=== PATIENT | female | born 1960 | race African-American/Black ===

== ENCOUNTER 2021-11-28 18:26 | Emergency (ER) | payer OTHER, SELFPAY ==
--- NOTE | ~2021-11-28 | XR_ITS ---
EXAMINATION: XR KNEE, LEFT CLINICAL INFORMATION: Swelling with knee pain. COMPARISON: None TECHNIQUE: AP, lateral, and both oblique views of the left knee. FINDINGS: Bones are osteopenic. Tricompartmental osteoarthritis is most severe in the medial compartment with nonuniform joint space narrowing, articular cortical irregularity, and marginal osteophytes. There is more moderate osteoarthritis in patellofemoral compartment and mild osteoarthritis in the lateral compartment. Small joint effusion. No fractures are identified. Bones are osteopenic. Soft tissues are swollen. XR/XR knee LT 3V IMPRESSION: Tricompartmental osteoarthritis the left knee, most severe in the medial compartment. Small knee joint effusion.
--- NOTE | ~2021-11-28 | US_ITS ---
EXAMINATION: US VENOUS ULTRASOUND WITH DOPPLER LOWER EXTREMITY, LEFT CLINICAL INFORMATION: Left leg swelling. Question popliteal cyst or DVT COMPARISON: None TECHNIQUE: Ultrasound of the deep veins is performed from the hip to the calf with compression sonography and color and pulse Doppler assessment. Spectral analysis with color-flow imaging is performed. FINDINGS: There is normal venous compression and respiratory variation and augmented flow. The visualized common femoral vein, superficial femoral vein, profunda femoral vein, popliteal vein, and the trifurcation region shows no evidence of deep venous thrombosis. Small Cai's/popliteal cyst measures 4.3 x 0.8 x 1.1 cm in size. If the patient's symptoms persist, followup ultrasound in 5 days 7 days might be of value to exclude proximal propagation from a non-visualized calf vein. US/US venous duplex LE LT IMPRESSION: 1. No DVT demonstrated in the left lower extremity. 2. Small Cai's cyst/popliteal cyst.
[2021-11-28 18:39] VITALS: BP 188/98; PULSE 64; RESP 18; TEMP 36.5; O2SAT 99; BMI 33.9
--- NOTE | 2021-11-28 20:11 | ED.EXTPRO ---
HPI - Extremity Problem General Chief complaint: Extremity Problem Stated complaint: left lower leg swelling/ pain Time Seen by Provider: 11/28/21 20:10 Source: patient Mode of arrival: ambulatory Limitations: no limitations History of Present Illness HPI Narrative: Patient's history of severe osteoarthritis noticed for last few days swelling and pain in the left knee and the leg no shortness of breath no history of blood clots in the past no history of fall or injury Related Data Previous Rx's Medication Instructions Recorded diclofenac sodium 50 mg 50 mg PO BID #30 tabs 11/28/21 tablet,delayed release tramadol 50 mg tablet 50 mg PO Q6H PRN pain #20 tabs 11/28/21 Allergies Allergy/AdvReac Type Severity Reaction Status Date / Time aspirin Allergy Unknown Verified 11/28/21 18:38 Review of Systems Review of Systems: Yes all other systems are reviewed and are negative [facility] Social History Social History Advance Directives: No Advance Directives Information Provided: No Physical Exam Vital Signs: Vital Signs: Last Vital Signs Temp 97.7 F 11/28/21 18:39 Pulse 64 11/28/21 18:39 Resp 18 11/28/21 18:39 BP 188/98 H 11/28/21 18:39 Pulse Ox 99 11/28/21 18:39 O2 Del Method 11/28/21 18:39 BMI result Body Mass Index 33.9 Appearance: Alert. Oriented X3. No acute distress. Eyes: No pallor/ icterus ENT: Pharynx normal. Oral Mucosa moist Neck: Normal inspection. Neck supple. CVS: Normal heart rate and rhythm. Pulses normal. Respiratory: No respiratory distress. Equal air entry bilateral, no wheezing/rales/rhonchi Abdomen: Soft and nontender. Bowel sounds are present, no mass palpable, no CVA tenderness Skin: Skin warm and dry. Normal skin color. Normal skin turgor. Extremities: Trace pedal edema left leg, No calf tenderness, left knee effusion + fullness in the popliteal area Aneta sign negative Neuro: Oriented X 3. No motor deficit. MDM - Extremity (Nontraumatic) MDM Narrative Medical decision making narrative: Patient with severe arthritis of left knee ultrasound negative for Doppler shows popliteal cyst as a cause for the left leg swelling. Patient advised to follow with orthopedic Discharge Plan Discharge Clinical Impression: Osteoarthritis of left knee Patient Disposition: Home, Self-Care Instructions: Osteoarthritis (ED) Additional Instructions: you have swelling of the left leg secondary to severe osteoarthritis of left knee Jesse wrap for support Follow-up with orthopedic for further evaluation including knee replacement as needed Pain medication as prescribed Rest your left knee Prescriptions: New diclofenac sodium 50 mg tablet,delayed release (DR/EC) 50 mg PO BID Qty: 30 0RF tramadol 50 mg tablet 50 mg PO Q6H PRN (Reason: pain) Qty: 20 0RF Referrals: Junior Quach MD [Physician] - 2 weeks Stand Alone Forms: Work/School Release
== END 2021-11-28 23:18 | disposition home or self-care (01) ==
PROVIDERS: Emergency Provider Internal Medicine
DX: M17.12 Unilateral primary osteoarthritis, left knee (principal); R60.0 Localized edema; Z79.899 Other long term (current) drug therapy
CPT/HCPCS: 73562; 93971; 96374; 96375; 99282; 99284